=== PATIENT | female | born 1980 | race Caucasian/White ===

== ENCOUNTER 2016-05-30 17:11 | Outpatient (CLI) | payer OTHER ==
[~2016-05-30] VITALS: Ht 154.9 cm; Wt 89.9 kg
[2016-05-30] MEDS ORDERED: PRENAT PO (17:36)
[2016-05-30] MEDS ORDERED: PANT40SU PO (17:37)
[2016-05-30] MEDS ORDERED: CARAS PO (17:38)
[2016-05-30] MEDS ORDERED: FER325 PO (17:39)
[2016-05-30 17:40] VITALS: Ht 154.9 cm; Wt 89.9 kg
[2016-05-30 17:41] VITALS: BP 118/68; PULSE 80; RESP 20
--- NOTE | 2016-05-30 18:42 | RADRPT ---
PROCEDURE: OB ultrasound CLINICAL INDICATION: Pelvic pain. Diabetes. TECHNIQUE: Multiple transverse and longitudinal OB images of the pelvis were obtained. The images were reviewed on a high-resolution PACS workstation. COMPARISON: 04/18/2016 FINDINGS: A single live intrauterine is seen. The presentation is breech and the right maternal obli que. The placenta is anterior in location. No evidence of placenta abruption or previa is seen. The heart rate is 150 beats per minute. The amniotic fluid index is 13.80 cm. movement 2 tone 2 breathing 2 Amniotic fluid 2 IMPRESSION: Biophysical profile of 11/25. Breech and right maternal oblique presentation of the fetus. RPTAT: HPNM Physician Jie Date Time Electronically viewed and signed by Physician Jie on 05/30/2016 18:41 /
--- NOTE | 2016-05-30 21:25 | QN ---
Documentation Comment 35-year-old with IUP at 37 weeks and 2 days presented with the complaint of left upper quadrant burning pain sensation that worsens with activity moving and bending. She denies any uterine contractions, leaking of fluid or vaginal bleeding or decreased movement. Patient has a history of gastritis. Currently taking Protonix for the last month with no improvement of the symptoms. She denies any nausea vomiting hematemesis or any other symptoms. Physical examination: GA: Alert and oriented 4 and not acute distress. Abdomen: Soft, nontender no rebound tenderness no guarding no rigidity Fundal height consistent with gestational age. NST: Category 1 JANNET: Normal BPP: 11/25 PROCEDURE: OB ultrasound CLINICAL INDICATION: Pelvic pain. Diabetes. TECHNIQUE: Multiple transverse and longitudinal OB images of the pelvis were obtained. The images were reviewed on a high-resolution PACS workstation. COMPARISON: 04/18/2016 FINDINGS: A single live intrauterine is seen. The presentation is breech and the right maternal oblique. The placenta is anterior in location. No evidence of placenta abruption or previa is seen. The heart rate is 150 beats per minute. The amniotic fluid index is 13.80 cm. movement 2 tone 2 breathing 2 Amniotic fluid 2 IMPRESSION: Biophysical profile of 11/25. Breech and right maternal oblique presentation of the fetus. RPTAT: HPNM Assessment: IUP at 37 and 2 days Left upper quadrant pain likely musculoskeletal. Patient was advised about warm compresses and Tylenol 500 mg 4 times daily Labor precaution and kick count discussed Presentation by ultrasound oblique. Will reassess with OB clinic at her next visit Plan: DC home Follow-up with OB clinic in less than 1 week Strict labor precautions and kick count discussed. Continue GERD medications given for Gastritis SADE WEI MD May 30, 2016 21:25
--- NOTE | 2016-05-30 21:32 | TRIAGE ---
OB Triage Datetime Report Generated by CPN: 05/30/2016 21:31 Datetime: 05/30/2016 20:52 Labor Evaluation Frequency: IRREGULAR Monitor Mode: External Duration (sec)2399: 40-60 Quality: Mild Pattern: Normal: <= 5 Contractions in 10 Minutes Resting Tone [place]: Relaxed Monitor Mode: External US Variability: Moderate 6-25 bpm Accelerations: 15X15 Decelerations: None Category: Category I Datetime: 05/30/2016 20:00 Labor Evaluation Frequency: 3-5 Monitor Mode: External Duration (sec)2399: 40-60 Quality: Mild Pattern: Normal: <= 5 Contractions in 10 Minutes Resting Tone [place]: Relaxed Heart Rate FHR Baseline Rate: 135 Monitor Mode: External US Variability: Moderate 6-25 bpm Accelerations: 15X15 Decelerations: None Category: Category I Datetime: 05/30/2016 19:52 Vaginal Exam Dilatation (cms): 1.0 Effacement (%): 30 Station: -4 Exam By: MARILEE Membrane Status: Intact Vaginal Bleeding: None Cervix, Consistency: Moderate Cervix, Position: Midposition Presentation 'A': Unable to Assess Datetime: 05/30/2016 19:28 Time of Arrival: 05/30/2016 17:07 EGA: 37.2 Arrived By: Wheelchair Arrived From: Dr. Mishra Chief Complaint: NST, JANNET, GDM Movement: Present Contractions: Denies/Absent Rupture of Membranes: Denies Vaginal Bleeding: None Vaginal Discharge: Denies Recent Sexual Intercouse: Denies Abdominal Trauma: Not Applicable Patient Complaints: Other Additional Patient Complaints: left upper quadrant pain x1 month, worsening Time Provider Notified: 05/30/2016 18:55 Provider Notified: Binu Initial Plan: NST, JANNET, BPP Datetime: 05/30/2016 19:14 Assessment Type: Triage Maternal Assessment Level of Consciousness: Fully Conscious DTR's/Clonus: DTRs 2+; No Clonus Headache: Denies Blurred Vision: No Respiratory Effort: Unlabored; Regular Rhythm; Equal Expansion Breath Sounds, Left: Clear and Equal Breath Sounds, Right: Clear and Equal Nausea/Vomiting: Denies RUQ Epigastric Pain: Denies Facial Edema: None Fall Risk Assessment History of Falling: (0) No Secondary Diagnosis: (0) No Ambulatory Aid: (0) Bedrest/Nurse Assist IV Therapy: (0) No Gait: (0) Normal/Bedrest/Immobile Mental Status: (0) Oriented to Own Ability Fall Score: 0 Fall Risk Score Definition: No Risk: No action required Datetime: 04/18/2016 19:13 Fall Score: 0 Fall Risk Score Definition: No Risk: No action required Datetime: 04/18/2016 15:54 Time of Arrival: 05/30/2016 17:07 EGA: 37.2 Arrived By: Ambulatory Arrived From: Office Chief Complaint: nst, jannet, a1dm Movement: Present Rupture of Membranes: Denies Vaginal Bleeding: None Vaginal Discharge: Denies Recent Sexual Intercouse: Denies Abdominal Trauma: Not Applicable Patient Complaints: Other Additional Patient Complaints: left upper quadrant pain x1 month, worsening Fall Score: 0 Fall Risk Score Definition: No Risk: No action required
== END 2016-05-30 21:05 | disposition home or self-care (01) ==
LOC: OBT 17:11 → L-D 17:12 → OBT 21:05
PROVIDERS: ATTEND Obstetrics & Gynecology
DX: O26.893 Other specified pregnancy related conditions, third trimester (principal); R10.12 Left upper quadrant pain; R10.2 Pelvic and perineal pain; O24.419 Gestational diabetes mellitus in pregnancy, unspecified control; Z3A.37 37 weeks gestation of pregnancy
CPT/HCPCS: 76818; Z7500; G0463

== ENCOUNTER 2016-06-02 12:07 | Outpatient (CLI) | payer OTHER ==
[~2016-06-02] VITALS: Ht 154.9 cm; Wt 90.3 kg
[~2016-06-02 12:07] MED LIST: CARAS PO; FER325 PO; PANT40SU PO; PRENAT PO
[2016-06-02 12:35] VITALS: Ht 154.9 cm; Wt 90.3 kg
[2016-06-02 12:36] VITALS: BP 107/61; PULSE 67; RESP 18
--- NOTE | 2016-06-02 13:32 | RADRPT ---
PROCEDURE: OB ultrasound for biophysical profile CLINICAL INDICATION: Biophysical profile. . Gestational diabetes TECHNIQUE: Multiple sonographic images of the pelvis were obtained. Transabdominal view of the gr avid uterus are available for review. The images were reviewed on a PACS workstation. COMPARISON: OB ultrasound 05/30/2016 FINDINGS: Single intrauterine gestation. Presentation: cephalic. Placenta: anterior breathing movement = 2/2 tone = 2/2 motion = 2/2 JANNET = 2/2 JANNET = 11.0 cm heart rate: 168 beats per minute IMPRESSION: Single intrauterine gestation. Biophysical profile 11/25 RPTAT: AADD .Elan Aparicio MD, MD Date Time Electronically viewed and signed by .Elan Aparicio MD, on 06/02/2016 13:31 .B/
--- NOTE | 2016-06-02 13:33 | RADRPT ---
PROCEDURE: Obstetrical ultrasound. CLINICAL INDICATION: , evaluation. Pelvic pain. Gestational diabetes. TECHNIQUE: Transabdominal sonographic images of the pelvis are obtained. COMPARISON: 05/30/2016 FINDINGS: Single intrauterine gestation. There is a vertex presentation. Measurements were made in order to determine age. The results are as follows: BPD = 9.07 cm HC = 32.79 cm AC = 34.94 cm FL = 7.24 cm Heart rate = 144 beats per minute The placenta is anterior. There is no evidence for an abruption or placenta previa. Ovaries are not visualized. IMPRESSION: Single intrauterine gestation of approximately 37 weeks 3 days by ultrasound criteria. Estimated weight = 3369 g; 68 percentile for estimated ultrasound age. RPTAT: AADD .Elan Aparicio MD, Date Time Electronically viewed and signed by .Elan Aparicio MD, on 06/02/2016 13:33 .B/
--- NOTE | 2016-06-02 18:03 | PN ---
DATE: The patient is a 35-year-old 37 ____ here for NST. ____. NST, baby all within normal limits. The patient was discharged home. Follow up as scheduled. ER precautions given. The patient is stable upon discharge. Dictated By: DANIELLE MCCAULEY MD /NTS Conf#: [id number] DID#: [id number]
== END 2016-06-02 15:30 | disposition home or self-care (01) ==
LOC: OBT 12:07 → L-D 12:08 → OBT 15:30
PROVIDERS: ATTEND Obstetrics & Gynecology
DX: O24.419 Gestational diabetes mellitus in pregnancy, unspecified control (principal); R10.2 Pelvic and perineal pain; Z3A.37 37 weeks gestation of pregnancy
CPT/HCPCS: 76815; 76818; Z7500; G0463

== ENCOUNTER 2016-06-13 15:39 | Outpatient (CLI) | payer OTHER ==
[~2016-06-13] VITALS: Ht 157.5 cm; Wt 91.3 kg
[2016-06-13 16:12] VITALS: Ht 157.5 cm; Wt 91.3 kg
[2016-06-13 16:13] VITALS: BP 129/74; PULSE 73; RESP 18
--- NOTE | 2016-06-13 16:34 | RADRPT ---
PROCEDURE: US OB. CLINICAL INDICATION: Size and dates , GDM TECHNIQUE: Multiple sonographic images of the pelvis and gravid uterus were obtained. The images were reviewed on a PACS workstation. COMPARISON: 06/02/16 FINDINGS: There is a single viable intrauterine gestation. Cardiac activity is present with 154 beats per min christopher. There is a vertex presentation. The placenta is anterior. There is no evidence for an abruption or placenta previa. There is a normal amount of amniotic fluid with an JANNET = 12.2 cm. Measurements were made in order to determine age. The results are as follows: BPD =9.5 cm HC =33.95 cm AC =36.56 cm FL =7.7 cm Estimated gestational age of approximately 39 weeks and 3 days based on ultrasound measurements. Clinical age: 39 weeks and 2 days. The estimated date of delivery is 06/17/16, based on ultrasound measurements. The EFW = 3916 g, 83.2%, based on LMP age. RPTAT: AA IMPRESSION: Single viable intrauterine gestation of approximately 39 weeks and 3 days based on ultrasound measu rements. .Pj Perkins MD, Date Time Electronically viewed and signed by .Pj Perkins MD, on 06/13/2016 16:34 .S/
--- NOTE | 2016-06-13 16:35 | RADRPT ---
PROCEDURE: US OB biophysical profile. CLINICAL INDICATION: decreased movements, GDM TECHNIQUE: Multiple sonographic images of the pelvis were obtained. The images were reviewed on a PACS workstation. COMPARISON: 06/02/16 FINDINGS: There is a single viable intrauterine gestation. Cardiac activity is present with 171 beats per min christopher. There is a vertex presentation. The placenta is anterior. There is no evidence for an abruption or placenta previa. There is a normal amount of amniotic fluid with an JANNET = 12.2 cm. Biophysical profile: movement 2/2 tone 2/2. breathing 2/2 JANNET 2/2 Total 11/25 RPTAT: AA . IMPRESSION: Normal biophysical profile. . .Pj Perkins MD, MD Date Time Electronically viewed and signed by .Pj Perkins MD, MD on 06/13/2016 16:35 .S/
--- NOTE | 2016-06-13 18:13 | HP ---
Date/Time of Note Date/Time of Note DATE: 06/13/16 TIME: 18:09 OB - History Hx of Present Free Text/Dictation OB Triage Pt is a 35yo at 39+2 presenting from clinic for evaluation of S>D. Pt reports normal FM, denies LOF, VB or UCs. PROCEDURE: US OB biophysical profile. CLINICAL INDICATION: decreased movements, GDM TECHNIQUE: Multiple sonographic images of the pelvis were obtained. The images were reviewed on a PACS workstation. COMPARISON: 06/02/16 FINDINGS: There is a single viable intrauterine gestation. Cardiac activity is present with 171 beats per minute. There is a vertex presentation. The placenta is anterior. There is no evidence for an abruption or placenta previa. There is a normal amount of amniotic fluid with an JANNET = 12.2 cm. Biophysical profile: movement 2/2 tone 2/2. breathing 2/2 JANNET 2/2 Total 11/25 RPTAT: AA . IMPRESSION: Normal biophysical profile. PROCEDURE: US OB. CLINICAL INDICATION: Size and dates , GDM TECHNIQUE: Multiple sonographic images of the pelvis and gravid uterus were obtained. The images were reviewed on a PACS workstation. COMPARISON: 06/02/16 FINDINGS: There is a single viable intrauterine gestation. Cardiac activity is present with 154 beats per minute. There is a vertex presentation. The placenta is anterior. There is no evidence for an abruption or placenta previa. There is a normal amount of amniotic fluid with an JANNET = 12.2 cm. Measurements were made in order to determine age. The results are as follows: BPD = 9.5 cm HC = 33.95 cm AC = 36.56 cm FL = 7.7 cm Estimated gestational age of approximately 39 weeks and 3 days based on ultrasound measurements. Clinical age: 39 weeks and 2 days. The estimated date of delivery is 06/17/16, based on ultrasound measurements. The EFW = 3916 g, 83.2%, based on LMP age. RPTAT: AA IMPRESSION: Single viable intrauterine gestation of approximately 39 weeks and 3 days based on ultrasound measurements. Estimated Due Date: Jun 18, 2016 : 4 Para: 2 Obstetrical Complications: None Medical Complications: None Past Family/Social History * Past Medical, Surgical, Family and Obstetric Histories reviewed from chart. OB Admission Exam Vital Signs Vital Signs Vital Signs Date Time Temp Pulse Resp B/P Pulse Ox O2 Delivery O2 Flow Rate FiO2 06/13/16 16:13 98.1 73 18 129/74 Room Air Physical Exam Heart Rate: 140's Accelerations: Accelerations Present Decelerations: No Decelerations Varibility: Moderate Contractions on Admission: >10 Minutes Apart OB Assessment/Plan Other Assessment: Term , EFW c/w 83%ile FWB reassuring, FHR initially tachycardic however quickly resolved to wnl Other plan: Pt appropriate for d/c home with follow-up at scheduled in clinic on 06/19/16 Strict FKC, Labor and ROM precautions reviewed Pt verbalized understanding of teaching Questions answered to her satisfaction MONIE BALES MD Jun 13, 2016 18:13
--- NOTE | 2016-06-13 18:26 | TRIAGE ---
OB Triage Datetime Report Generated by CPN: 06/13/2016 18:26 Datetime: 06/13/2016 17:45 Labor Evaluation Frequency: 5-7 Monitor Mode: External Duration (sec)2399: 50-90 Quality: Mild Pattern: Normal: <= 5 Contractions in 10 Minutes Resting Tone [place]: Relaxed Contraction Comments: Pt denies feeling any pain or pressure with contractions Heart Rate FHR Baseline Rate: 140 Monitor Mode: External US FHR Baseline Changes: No Baseline Change Variability: Moderate 6-25 bpm Accelerations: 15X15 Decelerations: None Category: Category I Pain Assessment Pain Presence: None/Denies Datetime: 06/13/2016 16:45 Labor Evaluation Frequency: OCC Monitor Mode: External Quality: Mild Pattern: Normal: <= 5 Contractions in 10 Minutes Resting Tone [place]: Relaxed Contraction Comments: Pt denying feeling pain or pressure with contractions Heart Rate FHR Baseline Rate: 155 Monitor Mode: External US FHR Baseline Changes: No Baseline Change Variability: Minimal - Undetectable to <=5 bpm Accelerations: 15X15 Decelerations: None Category: Category II Pain Assessment Pain Presence: None/Denies Datetime: 06/13/2016 16:17 Vaginal Exam Dilatation (cms): 1.0 Effacement (%): 50 Station: -3 Exam By: TM Membrane Status: Intact Datetime: 06/13/2016 16:15 Assessment Type: Triage Maternal Assessment Level of Consciousness: Fully Conscious DTR's/Clonus: DTRs 2+; No Clonus Headache: Denies Blurred Vision: No Respiratory Effort: Unlabored; Regular Rhythm; Equal Expansion Breath Sounds, Left: Clear and Equal Breath Sounds, Right: Clear and Equal Nausea/Vomiting: Denies RUQ Epigastric Pain: Denies Lower Extremities Edema: Bilateral Lower Extremities Degree: 1+ Upper Extremities Edema: Bilateral Upper Extremities Degree: 1+ Facial Edema: None Fall Risk Assessment History of Falling: (0) No Secondary Diagnosis: (0) No Ambulatory Aid: (0) Bedrest/Nurse Assist IV Therapy: (0) No Gait: (0) Normal/Bedrest/Immobile Mental Status: (0) Oriented to Own Ability Fall Score: 0 Fall Risk Score Definition: No Risk: No action required Datetime: 06/13/2016 16:14 Time of Arrival: 06/13/2016 15:36 EGA: 39.2 Arrived By: Ambulatory Arrived From: Dr. Mishra Chief Complaint: EFW for macrosomia Movement: Present Contractions: Regular Rupture of Membranes: Denies Vaginal Bleeding: Normal Show Vaginal Discharge: Denies Recent Sexual Intercouse: Yes Abdominal Trauma: Not Applicable Patient Complaints: None Time Provider Notified: 06/13/2016 16:40 Provider Notified: Maurer Initial Plan: EFW, BPP/JANNET Datetime: 06/13/2016 15:43 Stage of : OB Triage Datetime: 06/02/2016 15:10 Labor Evaluation Frequency: IRREGULAR Monitor Mode: External Duration (sec)2399: 50-90 Quality: Mild Pattern: Normal: <= 5 Contractions in 10 Minutes Resting Tone [place]: Relaxed Heart Rate FHR Baseline Rate: 130 Monitor Mode: External US FHR Baseline Changes: No Baseline Change Variability: Moderate 6-25 bpm Accelerations: 15X15 Decelerations: None Category: Category I Datetime: 06/02/2016 14:26 Labor Evaluation Frequency: IRREGULAR Monitor Mode: External Duration (sec)2399: 50-90 Quality: Mild Pattern: Normal: <= 5 Contractions in 10 Minutes Resting Tone [place]: Relaxed Heart Rate FHR Baseline Rate: 130 Monitor Mode: External US FHR Baseline Changes: No Baseline Change Variability: Minimal - Undetectable to <=5 bpm Accelerations: 15X15 Decelerations: None Category: Category II Datetime: 06/02/2016 14:05 Vaginal Exam Dilatation (cms): 0.5 Effacement (%): 30 Station: -4 Exam By: A GHUKASYAN Datetime: 06/02/2016 12:50 Labor Evaluation Frequency: IRREGULAR Monitor Mode: External Duration (sec)2399: 60-120 Quality: Mild Pattern: Normal: <= 5 Contractions in 10 Minutes Resting Tone [place]: Relaxed Heart Rate FHR Baseline Rate: 140 Monitor Mode: External US Variability: Minimal - Undetectable to <=5 bpm Accelerations: 15X15 Decelerations: None Category: Category II Datetime: 06/02/2016 12:40 Assessment Type: Admission Assessment Maternal Assessment Level of Consciousness: Fully Conscious DTR's/Clonus: DTRs 2+; No Clonus Headache: Denies Blurred Vision: No Respiratory Effort: Unlabored; Regular Rhythm; Equal Expansion Breath Sounds, Left: Clear and Equal Breath Sounds, Right: Clear and Equal Nausea/Vomiting: Denies RUQ Epigastric Pain: Denies Lower Extremities Edema: None Degree: None Upper Extremities Edema: None Degree: None Facial Edema: None Fall Risk Assessment History of Falling: (0) No Secondary Diagnosis: (0) No Ambulatory Aid: (0) Bedrest/Nurse Assist IV Therapy: (0) No Gait: (0) Normal/Bedrest/Immobile Mental Status: (0) Oriented to Own Ability Fall Score: 0 Fall Risk Score Definition: No Risk: No action required Datetime: 06/02/2016 12:39 Time of Arrival: 06/02/2016 12:00 EGA: 37.5 Arrived By: Ambulatory Arrived From: Home Chief Complaint: FOLLOW UP NST AND JANNET Movement: Present Contractions: Denies/Absent Rupture of Membranes: Denies Vaginal Bleeding: None Vaginal Discharge: Denies Recent Sexual Intercouse: Denies Abdominal Trauma: Not Applicable Patient Complaints: Other Time Provider Notified: 06/02/2016 14:20 Provider Notified: DR GARCIA Initial Plan: NST, JANNET AND EFW Datetime: 05/30/2016 19:28 EGA: 37.2 Datetime: 05/30/2016 19:14 Fall Score: 0 Fall Risk Score Definition: No Risk: No action required Datetime: 04/18/2016 19:13 Fall Score: 0 Fall Risk Score Definition: No Risk: No action required Datetime: 04/18/2016 15:54 EGA: 37.2 Fall Score: 0 Fall Risk Score Definition: No Risk: No action required
== END 2016-06-13 18:11 | disposition home or self-care (01) ==
LOC: L-D 15:39 → OBT 15:39
PROVIDERS: ATTEND Obstetrics & Gynecology
DX: O26.843 Uterine size-date discrepancy, third trimester (principal); O36.8130 Decreased fetal movements, third trimester, not applicable or unspecified; O24.419 Gestational diabetes mellitus in pregnancy, unspecified control; Z3A.39 39 weeks gestation of pregnancy
CPT/HCPCS: 76815; 76818; Z7500; G0463

== ENCOUNTER 2016-06-20 06:42 | Inpatient (IN) | payer OTHER ==
[~2016-06-20] VITALS: Ht 152.4 cm; Wt 92.3 kg
[2016-06-20 06:55] VITALS: BP 125/81; PULSE 87; RESP 20
--- NOTE | 2016-06-20 07:32 | RADRPT ---
PROCEDURE: OB ultrasound for biophysical profile CLINICAL INDICATION: Labor TECHNIQUE: Multiple sonographic images of the pelvis were obtained. Transabdominal views of the g ravid uterus are available for review. The images were reviewed on a PACS workstation. COMPARISON: OB ultrasound dated 06/13/2016 FINDINGS: breathing movement = 2/2 tone = 2/2 motion = 2/2 JANNET = 2/2 JANNET = 10.6 cm Single live intrauterine with cardiac activity of 144 bpm. position is cephal ic. The placenta is anterior. IMPRESSION: 1. Single live intrauterine gestation. 2. Biophysical profile = 8/8. 3. JANNET = 10.6 cm. RPTAT: HH .Sindhu Jimenez MD, Date Time Electronically viewed and signed by .Sindhu Jimenez MD, on 06/20/2016 07:32 .G/
[2016-06-20] MEDS ORDERED: METHYLERGONOVINE 0.2 MG INJ IM PRN (08:00)
[2016-06-20] MEDS ORDERED: MISOPROSTOL 200 MCG TAB PR PRN (08:00)
[2016-06-20] MEDS ORDERED: IBUPROFEN 600 MG TAB PO PRN (08:00)
[2016-06-20] MEDS ORDERED: LACTATED RINGER'S 1,000 ML IV PRN (08:00)
[2016-06-20] MEDS ORDERED: LIDOCAINE 1% (MPF) 30 ML INJ INJ PRN (08:00)
[2016-06-20] MEDS ORDERED: AMPICILLIN 2 GM/NS (PMX) 100 ML IV ONE (08:00)
[2016-06-20] MEDS ORDERED: BUTORPHANOL 2 MG INJ IV PRN (08:00)
[2016-06-20] MEDS ORDERED: OXYTOCIN 30 UNITS/LR 500 ML IV PRN (08:00)
[2016-06-20] MEDS ORDERED: CARBOPROST 250 MCG INJ IM PRN (08:00)
[2016-06-20] MEDS ORDERED: OXYTOCIN 30 UNITS/LR 500 ML IV SCH ×2 (08:00→09:24)
--- NOTE | 2016-06-20 08:08 | RADRPT ---
PROCEDURE: US OB. CLINICAL INDICATION: Labor TECHNIQUE: Multiple sonographic images of the pelvis were obtained. Transabdominal imaging only w as performed. The images were reviewed on a PACS workstation. COMPARISON: 06/13/2016. FINDINGS: There is a single viable intrauterine gestation. Cardiac activity is present with 142 beats per min [place]. There is a vertex presentation. Measurements were made in order to determine age. The results are as follows: BPD = 9.44 cm HC = 33.86 cm AC = 37.14 cm FL = 7.34 cm Estimated gestational age of approximately 39 weeks and 0 day. The estimated date of delivery is 06/27/2016. The EFW = 3888 g, 68%. The placenta is anterior, grade 1. There is no evidence for an abruption or placenta previa. There are no adnexal masses. IMPRESSION: 1. Single viable intrauterine gestation of approximately 39 weeks and 0 day. 2. The estimated date of delivery is 06/27/2016. RPTAT: PP .Page Daniel MD, MD Date Time Electronically viewed and signed by .Page Daniel MD, MD on 06/20/2016 08:08 .N/
[2016-06-20 08:15] LABS: ADD SCAN DIFF NO
[2016-06-20 08:18] LABS: BASOPHILS % 0.2 % (0.0-2.0); EOSINOPHILS # 0.2 10^3/ul (0.0-0.5); EOSINOPHILS % 2.4 % (0.0-7.0); HEMATOCRIT 36.9 % (37.0-47.0); HEMOGLOBIN 12.4 g/dl (12.0-16.0); LYMPHOCYTES # 3.2 10^3/ul (0.8-2.9); LYMPHOCYTES % 31.8 % (15.0-51.0); MEAN CORPUSCULAR HEMOGLOBIN 31.3 pg (29.0-33.0); MEAN CORPUSCULAR HGB CONC 33.6 g/dl (32.0-37.0); MEAN CORPUSCULAR VOLUME 93.2 fl (82.0-101.0); MEAN PLATELET VOLUME 9.6 fl (7.4-10.4); MONOCYTE # 0.8 10^3/ul (0.3-0.9); MONOCYTES % 7.8 % (0.0-11.0); NEUTROPHIL # 5.8 10^3/ul (1.6-7.5); NEUTROPHILS % 57.4 % (39.0-77.0); PLATELET COUNT 242 10^3/UL (140-415); RED BLOOD COUNT 3.96 10^6/ul (4.20-5.40); RED CELL DISTRIBUTION WIDTH 13.9 % (11.5-14.5); WHITE BLOOD COUNT 10.1 10^3/ul (4.8-10.8)
[2016-06-20] MEDS: LACTATED RINGER'S 1,000 ML IV SCH ×5 (08:26→20:29)
[2016-06-20 08:41] LABS: INR 0.93; PARTIAL THROMBOPLASTIN TIME 25.8 Sec (25.0-35.0); PROTIME 12.5 Sec (12.2-14.2)
[2016-06-20] MEDS ORDERED: FENTAnyl 2MCG/ML-ROPIV 0.2% 100 ML ONE (08:57)
[2016-06-20] MEDS ORDERED: ONDANSETRON 4 MG INJ IV PRN (09:30)
[2016-06-20] MEDS ORDERED: NALOXONE (0.4 MG/ML) INJ IV PRN (09:30)
[2016-06-20] MEDS ORDERED: DIPHENHYDRAMINE 50 MG INJ IV PRN (09:30)
[2016-06-20] MEDS: OXYTOCIN 30 UNITS/LR 500 ML IV SCH (09:32)
[2016-06-20] MEDS: AMPICILLIN 1 GM/NS (PMX) 50 ML IV SCH ×4 (12:15→23:58)
[2016-06-20] MEDS: DEXTROSE 5%-LR 1,000 ML IV PRN (17:47)
[2016-06-20] MEDS ORDERED: ACETAMINOPHEN 500 MG TAB PO STA (18:25)
[2016-06-20] MEDS: FENTAnyl 2MCG/ML-ROPIV 0.2% 100 ML BAG EPI SCH (21:16)
--- NOTE | 2016-06-20 21:46 | QN ---
Documentation Comment Laborist In to see pt and to review FHT. EFW 3888g on U/S this AM Pt is a 35yo at 40+2 admitted in labor, now s/p AROM at 1630 when 4cm. Now 5cm with no further progress. Pt febrile x1 prior to receiving Tylenol for NORTON. NORTON resolved and tachycardia to 170s also resolved with antipyretic and IVF bolus. Pt uncomfortable with epidural, still feeling pain. Epidural noted to be empty VS 98 131/70 (110s/60s mostly) FHT: baseline 150s, mod sanjay with periods of minimal variability, +accels, no decels [place]: q2-3 min A/P: Labor: Restart pitocin given unchanged cervical exam. As patient is still in latent labor, will allow time for reassessment. Presuming maternal and status are reassuring, will reassess in 4hrs. FWB: Overall reassuring. Continue intrauterine resuscitation ID: Continue monitoring for fevers. S/p AROM w/clear fluid x5hrs. GBS positive, receiving ppx Pain: Change epidural bag Plan d/w pt and patient's partner. Questions answered to their satisfaction MONIE BALES MD Jun 20, 2016 21:46
--- NOTE | 2016-06-21 01:04 | QN ---
Documentation Comment Laborist Pt more comfortable with epidural VS 100.0 107/60 95 FHT: baseline 160s, mod sanjay, +accels, no decels [place]: q2-3 min UCs, Pitocin at 7mu/min SVE: 6/100% R side of cervix, anterior and L cervix edematous/-1 A/P: Given cervical change, will continue augmentation IUPC placed to assess for adequacy of contractions Plan d/w pt MONIE BALES MD Jun 21, 2016 01:04
[2016-06-21] MEDS: LACTATED RINGER'S 1,000 ML IV SCH (02:29)
[2016-06-21] MEDS: FENTAnyl 2MCG/ML-ROPIV 0.2% 100 ML BAG EPI SCH (03:16)
[2016-06-21] MEDS: DEXTROSE 5%-LR 1,000 ML IV PRN (03:42)
[2016-06-21] MEDS ORDERED: ACETAMINOPHEN 500 MG TAB PO ONE (03:51)
[2016-06-21] MEDS: AMPICILLIN 1 GM/NS (PMX) 50 ML IV SCH ×2 (04:00→07:52)
--- NOTE | 2016-06-21 04:28 | QN ---
Documentation Comment Laborist Called at 0330 2/2 tachycardia to 180s with decreased variability. In to see pt and to review FHT. Pt c/o NORTON VS 98.8 109/62, 128/68 83 FHT: Baseline 180s, min variability, occ accels, no decels. + scalp stimulation with SVE [place]: q1-5 min, pitocin at 8mu/min, MVU >200 SVE: 9/edematous cx on L and anterior/0 with small caput per RN A/P: ->with intrauterine resuscitative measures FHR baseline decreased to 170s and variability improved with accels, occasional nonrepetitive variable decel ->continue Pitocin at 8mu/min ->repeat SVE to assess for progress in 2hrs pending maternal and stability ->Tylenol for NORTON Pt aware of plan. Questions answered to her satisfaction MONIE BALES MD Jun 21, 2016 04:28
[2016-06-21] MEDS: OXYTOCIN 30 UNITS/LR 500 ML IV SCH ×3 (08:24→13:13)
--- NOTE | 2016-06-21 08:40 | LDN ---
Date/Time of Note Date/Time of Note DATE: 06/21/16 TIME: 08:33 Delivery Summary 35 yol EDC 06/18/2016 admitted in labor Placenta Delivered: Spontaneously Meconium: none Perineum intact?: Yes Perineal laceration: 1 Anesthesia type: Epidural Estimated blood loss: 300 Sponge & Needle done & correct: Yes All needle counts correct: Yes Any foreign bodies felt in the: No Problems: Delivery Information Sex Sex: male Apgars 1 Minute: 9 5 Minute: 9 Suctioning Nose & mouth suctioned at carli: Yes Delee suction performed: No Umbilical Cord Umbilical cord with: 3 Vessels Cord presentations: no nuchal cord Cord Blood was obtained: Yes Mother & Baby Disposition Disposition Mom & Baby to Maternity; Good: Yes 24 HR. SUMMARY 24 HR. SUMMARY Laboratory Tests Test 06/20/16 09:13 06/20/16 13:44 06/20/16 17:38 06/20/16 21:20 Bedside Glucose 77mg/dL 78mg/dL 73mg/dL 71mg/dL Test 06/21/16 01:25 06/21/16 05:16 Bedside Glucose 72mg/dL 75mg/dL Current Medications Medications (Trade) Dose Ordered Sig/Manuel Route PRN Reason Start Time Stop Time Status Last Admin Dose Admin Lactated Ringer's 1,000 ml @ 125 mls/hr Q8H IV 06/20/16 07:52 06/21/16 02:29 Ampicillin 100 ml @ 100 mls/hr ONCE ONCE IV 06/20/16 08:00 06/20/16 08:59 DC 06/20/16 08:30 Ampicillin 50 ml @ 100 mls/hr Q4H IV 06/20/16 12:00 06/21/16 07:52 Oxytocin/Lactated Ringer's 500 ml @ 0 mls/hr TITRATE IV 06/20/16 08:00 06/21/16 08:24 Butorphanol Tartrate (Stadol) 2 mg Q2H PRN IV PAIN 06/20/16 08:00 Lidocaine 30 ml 30 ml ONCE PRN INJ EPISIOTOMY/TEARING 06/20/16 08:00 Oxytocin/Lactated Ringer's 500 ml @ 125 mls/hr ONCE IV 06/20/16 08:00 Ibuprofen 600 mg 600 mg ONCE PRN PO Mild Pain (Pain Score 1-3) 06/20/16 08:00 Lactated Ringer's 1,000 ml @ 125 mls/hr Q8H PRN IV PRE-EPIDURAL BOLUS 06/20/16 08:00 Oxytocin/Lactated Ringer's 500 ml @ 0 mls/hr ONCE PRN IV For Hemorrhage Management 06/20/16 08:00 Methylergonovine Maleate (Methergine) 0.2 mg ONCE PRN IM VAGINAL BLEEDING 06/20/16 08:00 Carboprost Tromethamine (Hemabate) 250 mcg ONCE PRN IM VAGINAL BLEEDING 06/20/16 08:00 Misoprostol 1000 mcg 1,000 mcg ONCE PRN HI VAGINAL BLEEDING 06/20/16 08:00 Fentanyl/ Ropivacaine 100 ml @ ud STK-MED ONCE .ROUTE 06/20/16 08:57 06/20/16 08:58 DC Naloxone HCl (Narcan) 0.1 mg Q2M PRN IV FOR RESP RATE 8 OR LESS 06/20/16 09:30 06/21/16 09:29 Diphenhydramine HCl (Benadryl) 25 mg Q6H PRN IV ITCHING 06/20/16 09:30 06/21/16 09:29 Ondansetron HCl (Zofran Inj) 4 mg Q6H PRN IV NAUSEA AND/OR VOMITING 06/20/16 09:30 06/21/16 09:29 Fentanyl/ Ropivacaine 100 ml 100 ml EPIDURAL INFUSION EPI 06/20/16 09:30 06/21/16 03:16 Oxytocin/Lactated Ringer's 500 ml @ 0 mls/hr Q0M IV 06/20/16 09:24 Dextrose/Lactated Ringer's (D5-Lr) 1,000 ml @ 125 mls/hr Q8H PRN IV DECREASED GLUCOSE 06/20/16 18:00 06/21/16 03:42 Acetaminophen (Tylenol Tab) 1,000 mg ONCE STAT PO 06/20/16 18:25 06/20/16 18:27 DC 06/20/16 18:30 Acetaminophen (Tylenol Tab) 1,000 mg ONCE ONCE PO 06/21/16 03:51 06/21/16 03:52 DC 06/21/16 04:00 OMAIRA SALAS MD Jun 21, 2016 08:40
--- NOTE | 2016-06-21 08:52 | HP ---
Date/Time of Note Date/Time of Note DATE: 06/21/16 TIME: 08:36 OB - History Hx of Present Free Text/Dictation 35 years old female admitted to [facility] at 40 weeks and two days in early labor, admitting pelvic examination cervical dilatation 2 cm effacement 80% vertex at -2 station heart rate category 1 due to suspected large baby an ultrasound for estimated weight recommended. Present history: this patient has been under the care of the [facility] and her has been complicated with gestational diabetes diet controlled Past history menarche at age 13 history of total of 5 including the present 2 normal vaginal delivery one spontaneous and one induced no other surgery or hospitalization. Allergies denies allergy to any known medication Social habit denies smoking or drinking Review of system within normal Physical examination 5 feet 201 pound total weight gain during the 22 pounds temperature 98.4 pulse 62 respiration 19 blood pressure 94/54. Head ears nose and throat negative, neck supple no thyromegaly, lungs Lungs clear to P&A Heart normal sinus rhythm no murmur Abdomen fundal height 41 cm from symphysis pubis with a heart rate category 1 Pelvic examination on admission cervix 2 cm 80% effaced vertex is -2 station Extremities no edema no varicosities Impression intrauterine at term early labor requires labor augmentation. Chief Complaint: 40 weeks and 2 days early labor Estimated Due Date: Jun 18, 2016 : 5 Para: 2 Spontaneous : 1 Therapeutic : 1 Care: Limited Care Ultrasounds: Normal mid trimester US Obstetrical Complications: Gestational Diabetes Medical Complications: None Past Family/Social History * Past Medical, Surgical, Family and Obstetric Histories reviewed from chart. Rubella: immune RPR/VDRL: Negative GBS Status: Negative HBsAG: Negative OB Admission Exam Vital Signs Vital Signs Vital Signs Date Time Temp Pulse Resp B/P Pulse Ox O2 Delivery O2 Flow Rate FiO2 06/20/16 06:55 98.0 87 20 125/81 Room Air Physical Exam HEENT: WNL Heart: Rhythm Normal Lungs: Clear, Equal Abdomen: WNL Extremities: Normal Reflexes: Normal Cervical Dilatation: 2cm Effacement: 75% Station: -2 Membranes: Intact Heart Rate: 130's Accelerations: Accelerations Present Decelerations: No Decelerations Varibility: Moderate Contractions on Admission: 6-10 Minutes Apart Intensity: Mild Last 72 hourBlood Glucose Bedside Glucose - 72 Hours Test 06/20/16 09:13 06/20/16 13:44 06/20/16 17:38 06/20/16 21:20 Bedside Glucose 77mg/dL (70-220) 78mg/dL (70-220) 73mg/dL (70-220) 71mg/dL (70-220) Test 06/21/16 01:25 06/21/16 05:16 Bedside Glucose 72mg/dL (70-220) 75mg/dL (70-220) Last 72 hours Lab Results CBC & BMP 06/20/16 08:00 KARLOS GARCIA MD Jun 21, 2016 08:46
[2016-06-21] MEDS: LACTATED RINGER'S 1,000 ML IV* SCH ×2 (09:58→17:58)
[2016-06-21] MEDS ORDERED: ACETAMINOPHEN/CODEINE #3 TAB PO PRN (10:00)
[2016-06-21] MEDS ORDERED: OXYTOCIN 30 UNITS/LR 500 ML IV PRN (10:00)
[2016-06-21] MEDS ORDERED: OXYCODONE/ASPIRIN (4.88/325) TAB PO PRN ×2 (10:00)
[2016-06-21] MEDS ORDERED: METHYLERGONOVINE 0.2 MG INJ IM PRN (10:00)
[2016-06-21] MEDS ORDERED: MISOPROSTOL 200 MCG TAB PR PRN (10:00)
[2016-06-21] MEDS ORDERED: LANOLIN 7 GM TUBE TOP PRN (10:00)
[2016-06-21] MEDS ORDERED: WITCH HAZEL/GLYCERIN PAD PR PRN (10:00)
[2016-06-21] MEDS ORDERED: ONDANSETRON 4 MG INJ IV PRN (10:00)
[2016-06-21] MEDS ORDERED: DIBUCAINE 1% 30 GM OINT PR PRN (10:00)
[2016-06-21] MEDS ORDERED: CARBOPROST 250 MCG INJ IM PRN (10:00)
[2016-06-21] MEDS ORDERED: ACETAMINOPHEN 325 MG TAB PO PRN (10:00)
[2016-06-21 10:30] VITALS: BP 138/77; RESP 18
[2016-06-21] MEDS: ACETAMINOPHEN/CODEINE #3 TAB PO PRN ×2 (10:40→16:03)
[2016-06-21] MEDS: BENZOCAINE 20% 56 ML SPRAY TOP PRN (10:41)
[2016-06-21] MEDS: IBUPROFEN 600 MG TAB PO SCH ×2 (13:13→17:52)
[2016-06-21 16:00] VITALS: BP 136/72; PULSE 78; RESP 20
[2016-06-21 20:00] VITALS: BP 106/58; RESP 20
[2016-06-21] MEDS: SENNA/DOCUSATE NA (8.6MG/50MG) TAB PO SCH (20:55)
[2016-06-22] MEDS: IBUPROFEN 600 MG TAB PO SCH ×4 (00:40→17:29)
[2016-06-22 01:02] VITALS: BP 118/77; PULSE 75; RESP 20
[2016-06-22] MEDS: LACTATED RINGER'S 1,000 ML IV* SCH (01:58)
[2016-06-22 04:44] VITALS: BP 119/80; PULSE 73; RESP 20
[2016-06-22 06:56] LABS: ADD SCAN DIFF NO
[2016-06-22 07:10] LABS: BASOPHILS % 0.2 % (0.0-2.0); EOSINOPHILS # 0.4 10^3/ul (0.0-0.5); EOSINOPHILS % 2.5 % (0.0-7.0); HEMATOCRIT 28.6 % (37.0-47.0); HEMOGLOBIN 9.2 g/dl (12.0-16.0); LYMPHOCYTES # 3.9 10^3/ul (0.8-2.9); LYMPHOCYTES % 27.3 % (15.0-51.0); MEAN CORPUSCULAR HEMOGLOBIN 30.5 pg (29.0-33.0); MEAN CORPUSCULAR HGB CONC 32.2 g/dl (32.0-37.0); MEAN CORPUSCULAR VOLUME 94.7 fl (82.0-101.0); MEAN PLATELET VOLUME 10.2 fl (7.4-10.4); MONOCYTES % 6.9 % (0.0-11.0); NEUTROPHIL # 8.9 10^3/ul (1.6-7.5); NEUTROPHILS % 62.7 % (39.0-77.0); PLATELET COUNT 176 10^3/UL (140-415); RED BLOOD COUNT 3.02 10^6/ul (4.20-5.40); RED CELL DISTRIBUTION WIDTH 14.7 % (11.5-14.5); WHITE BLOOD COUNT 14.1 10^3/ul (4.8-10.8)
[2016-06-22 08:00] VITALS: BP 108/75; PULSE 79; RESP 18
[2016-06-22] MEDS: SENNA/DOCUSATE NA (8.6MG/50MG) TAB PO SCH ×2 (09:00→21:00)
[2016-06-22 15:53] VITALS: BP 116/69; PULSE 76; RESP 18
[2016-06-22] MEDS: ACETAMINOPHEN/CODEINE #3 TAB PO PRN ×2 (15:53→19:55)
--- NOTE | 2016-06-22 15:55 | PN ---
Date/Time of Note Date/Time of Note DATE: 06/22/16 TIME: 15:53 OB Subjective Subjective Subjective day 1 Vital signs stable, afebrile, abdomen soft uterus firm lochia normal extremity normal KARLOS GARCIA MD Jun 22, 2016 15:55
[2016-06-22 20:00] VITALS: BP 115/69; PULSE 69; RESP 19
[2016-06-23] MEDS: IBUPROFEN 600 MG TAB PO SCH ×3 (00:17→12:36)
[2016-06-23] MEDS: BENZOCAINE 20% 56 ML SPRAY TOP PRN (01:11)
[2016-06-23 07:45] VITALS: BP 127/78; PULSE 71; RESP 20
[2016-06-23] MEDS: ACETAMINOPHEN/CODEINE #3 TAB PO PRN (08:21)
[2016-06-23] MEDS: SENNA/DOCUSATE NA (8.6MG/50MG) TAB PO SCH (08:22)
[2016-06-23] MEDS ORDERED: MEASLES,MUMPS,RUBELLA VACCINE INJ SC* ONE (09:00)
--- NOTE | 2016-06-23 09:42 | PD.PPDC ---
ASSOCIATE PRINCIPAL Discharge Instruction Condition Patient Condition: Good Diet Diet: Resume Regular Diet Activity/Restrictions Restrictions: No Exercising No Lifting No Driving No Sexual Activity Nothing in the Vagina No Chauvin No Tampons, douche Follow-up Follow-up with Physician: 2, Week/Weeks Provider Information: Vital signs stable afebrile abdomen soft uterus firm lochia normal extremity normal patient discharged home with instructions recommended appointment to the clinic in 2 weeks. Return to clinic for MANAGER DATA Instructions: Fever greater than 101 Chills Worsening abdominal pain Excessive Vaginal Bleeding More than 2 pads per hour Unable to tolerate diet OB Instructions: Breast Tenderness Depression Blurried Vision Headache Surgical Instructions: Incisional Drainage Incisional Redness KARLOS GARCIA MD Jun 23, 2016 09:42
--- NOTE | 2016-06-23 09:45 | DS ---
Date/Time of Note Date/Time of Note DATE: 06/23/16 TIME: 09:43 Obstetrical Discharge Record Final Diagnosis Final Diagnosis: Term delivered Vaginal Delivery Obstetrical Delivery: Spontaneous Condition on Discharge Physical Assessment Last Vitals: Vital signs stable afebrile abdomen soft uterus firm lochia normal extremity normal discharged home follow-up instructions, appointment clinic in 2 weeks Voiding: Yes Bowel Movement: Yes Breast: Soft, non-tender, Filling Calf Tenderness: No Patient Condition: Good KARLOS GARCIA MD Jun 23, 2016 09:44
== END 2016-06-23 13:40 | disposition home or self-care (01) | DRG 775 ==
LOC: OBT 06:42 → L-D 06:43 → OBT 07:46 → L-D 07:48 → PP1 06-21 10:46
PROVIDERS: ADMIT Obstetrics & Gynecology; ATTEND Obstetrics & Gynecology
PROC: 10E0XZZ Delivery of Products of Conception, External Approach (ICD-10-PCS; principal; 2016-06-21)
DX: O24.429 Gestational diabetes mellitus in childbirth, unspecified control (principal); O48.0 Post-term pregnancy; Z3A.40 40 weeks gestation of pregnancy; Z37.0 Single live birth
CPT/HCPCS: 62319; 76815; 76818; 82962; 84112; 85025; 85610; 85730; 86592; 86900; 86901; 99464; G0463; J0290; J2590; J3010; J7120

== ENCOUNTER 2017-02-09 09:43 | Emergency (ER) | payer MEDICAID, OTHER ==
[~2017-02-09] VITALS: Ht 152.4 cm; Wt 91.5 kg
[2017-02-09 09:49] VITALS: Ht 152.4 cm; Wt 91.5 kg
[2017-02-09] MEDS ORDERED: HYDR-906 PO (10:36)
[2017-02-09] MEDS ORDERED: METH750T93 PO (10:36)
[2017-02-09] MEDS ORDERED: IBUP-1542 PO (10:36)
--- NOTE | 2017-02-09 10:38 | ERD ---
ER Documentation Chief Complaint Chief Complaint lower back pain x2 days, had epidural 7mths ago HPI This is a 36-year-old female complains of day 2 of bilateral lower back pain. The pain is Sharp worse with movement. She says the pain is worse if she lays flat or sits in the pain is better with standing. She does lift a 25 pound baby frequently. No radiation of pain down the legs no loss of bowel or bladder no weakness no pain in the abdomen. No dysuria hematuria fever. ROS All systems reviewed and are negative except as per history of present illness. Medications Home Meds Active Scripts Methocarbamol* (Robaxin*) 750 Mg Tablet, 750 MG PO TID, #20 TAB Prov:VIKASH MINAYA DO 02/09/17 Ibuprofen* (Motrin*) 600 Mg Tab, 600 MG PO Q8, #30 TAB Prov:VIKASH MINAYA DO 02/09/17 Hydrocodone/Acetaminophen ([place] 5-325 Tablet) 1 Each Tablet, 1 TAB PO Q6H Y for PAIN, #20 TAB Prov:VIKASH MINAYA DO 02/09/17 Reported Medications Ferrous Sulfate* (Ferrous Sulfate*) 325 Mg Tabec, 325 MG PO DAILY, TAB 05/30/16 Sucralfate* (Carafate*) 1 Gm/10 Ml Susp, 1 GM PO QID, EA 05/30/16 Pantoprazole Sodium (Protonix) 40 Mg Granpkt.dr, 40 MG PO 05/30/16 Multivit/Min/Fol Ac/Iron/Pren* ( S*) 1 Tab Tab, 1 TAB PO DAILY, TAB 05/30/16 Allergies Allergies: Coded Allergies: No Known Allergy (Unverified , 06/20/16) PMhx/Soc History of Surgery: No Anesthesia Reaction: No Hx Neurological Disorder: No Hx Respiratory Disorders: No Hx Cardiac Disorders: No Hx Psychiatric Problems: No Hx Miscellaneous Medical Probl: Yes (history of ectopic ) Hx Alcohol Use: No Hx Substance Use: No Hx Tobacco Use: No FmHx Family History: No coronary disease Physical Exam Vitals Vital Signs Date Time Temp Pulse Resp B/P Pulse Ox O2 Delivery O2 Flow Rate FiO2 02/09/17 09:49 98.8 69 20 127/79 98 Physical Exam Const: Well-developed, well-nourished Head: Atraumatic, normocephalic Eyes: Normal Conjunctiva, PERRLA, EOMI, normal sclera, no nystagmus ENT: Normal External Ears, Nose and Mouth, moist mucus membranes. Neck: Full range of motion. No meningismus, no lymphadenopathy. Resp: Clear to auscultation bilaterally, no wheezing, rhonchi, rales Cardio: Regular rate and rhythm, no murmurs, S1 S2 present Abd: Soft, non tender x 4, non distended. Normal bowel sounds, no guarding or rebound, no pulsitile abdominal masses or bruits Skin: No petechiae or rashes, no ecchymosis , no maculopapular rash Back: [Bilateral lower lumbar paravertebral tenderness to palpation is reproducible. Pain is also reproducible with flexion, negative straight leg test Ext: No cyanosis, or edema, FROM x 4, normal inspection, neurovascularly intact x 4 Neur: Awake and alert, STR 5/5 x 4, sensation intact x 4, no focal findings, cerebellum intact Psych: Normal Mood and Affect Procedures/MDM We will treat with symptomatic control with narcotics, anti-inflammatories and home care Departure Diagnosis: Primary Impression: Back pain Back pain location: low back pain Chronicity: acute Back pain laterality: bilateral Sciatica presence: without sciatica Qualified Code: M54.5 - Acute bilateral low back pain without sciatica Condition: Stable Patient Instructions: Back Pain (Acute Or Chronic) Referrals: SACHI BRITO (PCP) VIKASH MINAYA DO Feb 09, 2017 10:38
[2017-02-09] MEDS ORDERED: HYDROCODONE/APAP (10/325) TAB PO ONE (11:00)
== END 2017-02-09 18:59 | disposition home or self-care (01) ==
LOC: FTE 09:43
DX: M54.5 Low back pain (principal)
CPT/HCPCS: Z7502; Z7610; 99284

== ENCOUNTER 2017-06-12 11:12 | Emergency (ER) | END 2017-06-12 15:29 | disposition home or self-care (01) ==